=== PATIENT | female | born 1980 | race Caucasian/White ===

== ENCOUNTER → 2025-01-08 | Outpatient (CLI) | payer BC ==
--- NOTE | 2025-01-08 10:45 | XR ---
EXAMINATION TYPE: XR cervical spine comp DATE OF EXAM: 01/08/2025 10:28 AM COMPARISON: None CLINICAL INDICATION: Female, 44 years old with history of M54.2 Cervicalgia, pain TECHNIQUE: The cervical spine was imaged in frontal, lateral, odontoid and bilateral oblique. FINDINGS: The osseous structures show normal alignment without evidence of an acute fracture. There are osteoph ytes noted throughout the cervical spine on the anterior and lateral aspects of the vertebral bodies. The intervertebral disk spaces are narrowed at multiple levels. Pedicles are intact. Soft tissues a re within normal limits. The odontoid appears intact. IMPRESSION: 1. No fracture or dislocation. 2. Mild degenerative disc disease changes of the cervical spine. [facility], , 01/08/2025 10:42 AM
== END | disposition home or self-care (01) ==
LOC: RADXRMAIN 10:14
PROVIDERS: ATTEND Family Medicine
DX: M50.30 Other cervical disc degeneration, unspecified cervical region (principal)
CPT/HCPCS: 72050

== ENCOUNTER → 2025-01-23 | Outpatient (CLI) | payer BC ==
--- NOTE | 2025-01-24 10:35 | MR ---
EXAMINATION TYPE: MR cervical spine wo con DATE OF EXAM: 01/23/2025 10:14 PM COMPARISON: 01/17/2025 CT CLINICAL INDICATION: Female, 44 years old with history of M47.22, M54.2, Neck pain/weakness into both arms-RT side worse x4 months TECHNIQUE: Multiplanar multiecho imaging on a 3.0 Alexandra magnet is performed through the cervical spin e. IV Contrast: mL (None, if empty) FINDINGS: The craniovertebral junction is normal. Vertebral body alignment is normal. Diffuse disc desiccation throughout the cervical spine. Signal within the cord appears normal C7-T1: No focal disc herniation or significant disc bulge is evident. No spinal canal stenosis or n eural foraminal stenosis is present. C6-7: Broad-based disc bulge with mild anterior thecal sac compression. No AP spinal canal stenosis i s present. No cord contact. Mild right foraminal narrowing is present from uncovertebral joint hypert rophy.. C5-6: Central left paracentral disc bulging is present with moderate anterior thecal sac compression. This comes in close approximation with the spinal cord on the left. No cord deformity or AP spinal c anal stenosis is present. Right neural foramen is moderately narrowed from uncovertebral joint hypert rophy. C4-5: Subtle minimal disc bulge is present with anterior thecal sac contact. No AP spinal canal steno sis present. No cord contact. Neural foramen are patent.. C3-4: No focal disc herniation or significant disc bulge is evident. No spinal canal stenosis or abner ral foraminal stenosis is present. C2-3: No focal disc herniation or significant disc bulge is evident. No spinal canal stenosis or abner ral foraminal stenosis is present. IMPRESSION: 1. Disc bulging C5-6 centrally and left paracentrally without stenosis or cord contact. 2. Milder disc bulging is present C6-7 and C4-5. 3. Right foraminal narrowing C5-6 C6-7 [facility], , 01/24/2025 10:33 AM
== END | disposition home or self-care (01) ==
LOC: RADMRIMAIN 21:45
PROVIDERS: ATTEND Orthopaedic Surgery
DX: M50.123 Cervical disc disorder at C6-C7 level with radiculopathy (principal); M47.22 Other spondylosis with radiculopathy, cervical region; M99.71 Connective tissue and disc stenosis of intervertebral foramina of cervical region
CPT/HCPCS: 72141

== ENCOUNTER → 2025-03-05 | Outpatient (CLI) | payer BC ==
[2025-03-05 09:05] VITALS: BP 124/84; PULSE 78; RESP 16; TEMP 97.7
--- NOTE | 2025-03-05 15:43 | P.PAINPG ---
Objective - Vital Signs Vital signs: Intake & Output 03/04/25 03/05/25 03/05/25 18:59 06:59 18:59 Weight 72.575 kg PQRS Measure Charge Sheet Comment: HISTORY OF PRESENT ILLNESS: A 44 yr old female as a referral from Dr Bruce presents today w severe and chronic neck pain > 3 mo secondary to radiculopathy, spondylosis and facet arthropathy without myelopathy for evaluation. Pt states pain level is provoked at 6 /10 in intensity, constant, localized in the cervical spine, predominantly axial, achy in character w occasional shooting pain/ numbness towards the UEs, R> L. Pain is provoked by rotation, laying on R side. Pain is alleviated by physician guided home exercises/ stretches from Dr Arnold daily since Oct 2024, medications, topical, repositioning and rest . Cervical disability score at 26. PMH: OA PSH: LEEP (1996), Uterine Ablation (2010) SH: Never smoker, Occ ETOH use, No illicit drug use FH: Mo- COPD All: See list Medications include Lyrica, Celebrex, Tyl, Prednisone dosepack, BioFreeze REVIEW OF ORGAN SYSTEMS: CONSTITUTIONAL: No fevers or chills. No recent weight loss. NEUROLOGICAL: + numbness and tingling along the distal extremities. No seizure disorders or headaches. MUSCULOSKELETAL: + pain PSYCHIATRIC: Denies current depression or suicidal thoughts. Physical Examinations : Constitutional : Cooperative , not in acute distress . Neurologic : Cranial nerve II to XII intact. No focal neurological deficits. Psychiatric : alert & oriented x 3. Matching mood & appropriate affect. Judgment & insight intact. Musculoskeletal : Cervical Spine Motor strength in the deltoid and biceps: Normal right side. Normal Left side Motor strength biceps and the wrist extensors: Normal right side . Normal left side Motor strength in the triceps muscle: Normal right side. Normal left side Deep tendon reflexes: Normal at the biceps. Normal at Brachioradialis. Normal at triceps Vertebral body tenderness to deep palpation over C6 Cervical facet loading test: positive bilaterally Spurling test: positive BL C5-C6 Neck distraction test: positive bilaterally Teresita sign: positive bilaterally Lumbar spine Motor strength lower extremities ,thigh and legs 5/5 Right side , 5/5 Left side Deep tendon reflexes : Normal Knee Jerk. Normal Ankle Jerk Vertebral body tenderness over David Test positive Lumbar facet Loading Test: positive Right / positive Left Range of motion of the lumbar spine Flexion 30 degrees, extension 10 degrees Straight Leg Raise test: Left/ Right positive at degrees Lakshmi test: positive right / positive left. Severe tenderness over the Sacroiliac joint on the Right / Left sides Gaenslen test: positive bilaterally Seated flexion test: positive bilaterally. Sacral spine : Severe tenderness over the Sacroiliac joint: right side / left side Range of motion: Flexion of the lumbar spine <60 degrees Range of motion: Extension of the lumbar spine <20 degrees Gaenslen's Test positive Lakshmi test: positive right side / left side Thigh Thrust Test Sacral Thrust Test Imaging: MRI non contrast cervical spine from 01/23/25 reviewed Assessment/ Plan : C5-C7 radiculopathy Recommendation of DALE C5-C6 #1. Risks, benefits of procedure discussed and patient verbalized understanding. Admits to anti- coagulant use or medical history of diabetes. Protocol for discontinuation/ continuation of medications angeline procedure discussed. All questions answered. I have spent greater than 30 minutes on patient care today. Dr Fierro was available by phone for the evaluation of this patient. The time was used to review the medical records including relevant urine studies and Prescription history (MAPs), review of the available imaging, evaluation and examination of the patient, coordination of care with the medical staff and if applicable referring physicians, as well as creation of the medical record - Pain Location Bilateral Neck Non-Pharmacological Interventions: Ice Pharmacological Interventions: PRN Medication, Topical Medication Home Medications: Ambulatory Orders Atorvastatin [Lipitor] 20 mg PO DAILY 03/05/25 Celecoxib [CeleBREX] 200 mg PO BID 03/05/25 Pregabalin [Lyrica] 150 mg PO BID 03/05/25 buPROPion XL [Wellbutrin XL] 300 mg PO DAILY 03/05/25 diazePAM [Valium] 10 mg PO DAILY 1 Days #1 tab 03/05/25 Controlled Substance Measures - Controlled Substance Measures Is patient prescribed a controlled substance at discharge?: Yes When asked, does pt state using other controlled substances?: Yes If prescribed controlled substance>3 days was MAPS reviewed?: Prescribed <3 Days
== END ==
LOC: PNWHC3 08:43
PROVIDERS: ATTEND Specialist
DX: M47.22 Other spondylosis with radiculopathy, cervical region (principal); Z88.8 Allergy status to other drugs, medicaments and biological substances
CPT/HCPCS: 99202

== ENCOUNTER 2025-03-29 09:13 | Day surgery (SDC) | payer BC ==
[2025-03-27 13:12] VITALS: BMI 28.8
[2025-03-29] MEDS ORDERED: LACTATED RINGERS 1,000 ML IV SCH (09:25)
[2025-03-29 09:41] VITALS: RESP 16; TEMP 97
[2025-03-29] MEDS ORDERED: DEXAMETHASONE SOD PHOSPHATE 10 MG/ML 1 ML VIAL ONE (10:28)
[2025-03-29] MEDS ORDERED: IOPAMIDOL M200 10 ML VIAL ONE (10:28)
--- NOTE | 2025-03-29 10:36 | P.PCN ---
Date of Procedure: 03/29/25 Procedure(s) Performed: . PROCEDURE 1. Cervical epidural steroid injection under fluoroscopic guidance, C5-6 (fluoroscopy images available in the radiology department ) 2. Cervical epidurogram. PREOPERATIVE DIAGNOSIS: 1- Cervical Degenerative Disc Diseases 2- Cervical radiculopathy. POSTOPERATIVE DIAGNOSIS: : 1- Cervical Degenerative Disc Diseases , 2- Cervical radiculopathy. ANESTHESIA: Local anesthesia with lidocaine 1% 3 ml only EBL 0 PROCEDURE INDICATION: The patient with neck pain and radiculitis unresponsive to conservative treatment consents for procedure. PROCEDURE DESCRIPTION / TECHNIQUE: The patient was seen and identified in the preoperative area. Risks, benefits, complications, including but not limited to infections ,bleeding , allergic reactions to the medications ,and not complete pain releife, and alternatives were discussed with the patient, the patient agreed to proceed with the procedure and signed the consent. Patient was taken to the OR and time out was completed. The patient was placed in the prone position on the procedure table. A pillow was placed under the patients chest to increase the cervical interlaminar space. The cervical area was prepped and draped in the usual sterile fashion. Vital signs were closely monitored during the procedure. Using anterior-posterior fluoroscopy, the C5-6 interlaminar space was identified and the skin over this site was marked and then infiltrated with 1% lidocaine subcutaneously. Subsequently, a 20-gauge 3-1/2-inch Tuohy epidural needle was inserted and advanced toward the epidural space by means of the ``hanging-drop technique and guided by AP and lateral fluoroscopy. The correct needle position in the epidural space was verified with the injection of 2 mL of the water soluble contrast dye [id number]-[id number] and observing an excellent epidurogram with the epidural spread of the dye, after negative aspiration for blood and CSF and in the absence of paresthesias. then, mixture containing 20 mg Dexamethasone and 2 ml of preservative-free normal saline injected and a washout of epidurogram was seen. Needle was withdrawn intact, skin was cleansed, and bandages were applied. Complications= none. Disposition= patient was placed in supine position and transferred to the recovery room area in stable condition and there was no evidence of upper or lower extremity motor or sensory deficit after the procedure patient was discharged from recovery room after discharge criteria met and home discharge instructions was given by the staff and patient will follow with the pain clinic in 2-4 weeks
[2025-03-29 10:43] VITALS: PULSE 71
--- NOTE | 2025-03-29 10:54 | FL ---
EXAMINATION TYPE: FL guided pain mgmt statistic Intraoperative/procedural fluoroscopic services were provided. CLINICAL INDICATION:Female, 44 years old with history of PAIN; , [facility] FINDINGS: Fluoroscopic image demonstrating cervical pain management injection. No radiographic evidence for com plication. Total fluoroscopy time is 6.4 seconds. DAP: [id number] [id number] Please see the operative/procedural note for further details. [facility], , 03/29/2025 10:52 AM
[2025-03-29 10:58] VITALS: BP 125/81
== END 2025-03-29 11:08 ==
LOC: ORPAIN 09:13
PROVIDERS: ATTEND Anesthesiology
DX: M50.10 Cervical disc disorder with radiculopathy, unspecified cervical region (principal)
CPT/HCPCS: 81025; 62321; J1100; Q9966

== ENCOUNTER → 2025-04-19 | Outpatient (CLI) | payer BC ==
[2025-04-19 09:12] VITALS: BP 125/87; PULSE 81; RESP 16; TEMP 97.3
--- NOTE | 2025-04-19 14:31 | P.PAINPG ---
PQRS Measure Charge Sheet Comment: HISTORY OF PRESENT ILLNESS: A 44 yr old female presents today w severe and chronic neck pain > 3 mo secondary to radiculopathy, spondylosis and facet arthropathy without myelopathy for evaluation s/p DALE C5-C6 #1. Pt states she experienced 80 % pain relief x 3 wks s/p procedure. Pt states pain level is provoked at 6 /10 in intensity, constant, localized in the cervical spine, predominantly axial, achy in character without shooting pain. Pain is provoked by rotation, laying on R side. Pain is alleviated by physician guided home exercises/ stretches from Dr Arnold daily since Oct 2024, medications, topical, repositioning and rest . Cervical disability score at 26. Interventional procedures include DALE C5-C6 x1 (04/13) Medications include Lyrica, Celebrex, Tyl, Prednisone dosepack, BioFreeze REVIEW OF ORGAN SYSTEMS: CONSTITUTIONAL: No fevers or chills. No recent weight los s. NEUROLOGICAL: + numbness and tingling along the distal extremities. No seizure disorders or headaches. MUSCULOSKELETAL: + pain PSYCHIATRIC: Denies current depression or suicidal thoughts. Physical Examinations : Constitutional : Cooperative , not in acute distress . Neurologic : Cranial nerve II to XII intact. No focal neurological deficits. Psychiatric : alert & oriented x 3. Matching mood & appropriate affect. Judgment & insight intact. Musculoskeletal : Cervical Spine Motor strength in the deltoid and biceps: Normal right side. Normal Left side Motor strength biceps and the wrist ex tensors: Normal right side . Normal left side Motor strength in the triceps muscle: Normal right side. Normal left side Deep tendon reflexes: Normal at the biceps. Normal at Brachioradialis. Normal at triceps Vertebral body tenderness to deep palpation over C6 Cervical facet loading test: positive R> L C5-C6, C6-C7 Spurling test: positive BL C5-C6 Neck distraction test: positive bilaterally Teresita sign: positive bilaterally Lumbar spine Motor strength lower extremities ,thigh and legs 5/5 Right side , 5/5 Left side Deep tendon reflexes : Normal Knee Jerk. Normal Ankle Jerk Vertebral body tenderness over David Test positive Lumbar facet Loading Test: positive Right / positive Left Range of motion of the lumbar spine Flexion 30 degrees, extension 10 degrees Straight Leg Raise test: Left/ Right positive at degrees Lakshmi test: positive right / positive left. Severe tenderness over the Sacroiliac joint on the Right / Left sides Gaenslen test: positive bilaterally Seated flexion test: positive bilaterally. Sacral spine : Severe tenderness over the Sacroiliac joint: right side / left side Range of motion: Flexion of the lumbar spine <60 degrees Range of motion: Extension of the lumbar spine <20 degrees Gaenslen's Test positive Lakshmi test: positive right side / left side Thigh Thrust Test Sacral Thrust Test Imaging: MRI non contrast cervical spine from 01/23/25 reviewed Assessment/ Plan : C5-C7 radiculopathy Recommendation of VANI MBB C5-C6, C6-C7 #1. Risks, benefits of procedure discussed and patient verbalized understanding. Admits to anti- coagulant use or medical history of diabetes. Protocol for discontinuation/ continuation of medications angeline procedure discussed. Minimal anesthesia including Fentanyl and Versed if clinically indicated. All questions answered. I have spent greater than 30 minutes on patient care today. Dr Fierro was available by phone for the evaluation of this patient. The time was used to review the medical records including relevant urine studies and Prescription history (MAPs), review of the available imaging, evaluation and examination of the patient, coordination of care with the medical staff and if applicable referring physicians, as well as creation of the medical record - Pain Location Bilateral Lower Neck Non-Pharmacological Interventions: Ice, Inactivity, Position/Reposition, Relaxation Technique, Sitting Pharmacological Interventions: Epidural, PRN Medication, Topical Medication PQRS Narrative: Hx Alcohol Use (MH) Yes: SOCIAL Home Medications: Ambulatory Orders Atorvastatin [Lipitor] 20 mg PO QAM 03/05/25 Celecoxib [CeleBREX] 200 mg PO BID 03/05/25 Pregabalin [Lyrica] 150 mg PO BID 03/05/25 buPROPion XL [Wellbutrin XL] 300 mg PO QAM 03/05/25 ALPRAZolam [Xanax] 0.25 mg PO BID PRN 03/27/25 Acetaminophen [Acetaminophen 8 hr] 650 mg PO BID 03/27/25 Vitamin D (Unknown Dose) 1 dose PO QAM 03/27/25 diazePAM [Valium] 10 mg PO DAILY PRN 03/27/25 Controlled Substance Measures - Controlled Substance Measures Is patient prescribed a controlled substance at discharge?: No
== END ==
LOC: PNWHC3 08:49
PROVIDERS: ATTEND Specialist
DX: M47.22 Other spondylosis with radiculopathy, cervical region (principal); Z88.8 Allergy status to other drugs, medicaments and biological substances
CPT/HCPCS: 99211